=== PATIENT | female | born 1985 | race American Indian/Alaskan Native ===

== ENCOUNTER 2017-06-29 12:56 | Emergency (ER) | payer OTHER ==
[2017-06-29 14:28] VITALS: BP 110/74
--- NOTE | 2017-06-29 14:43 | Emergency Department Report ---
HPI - General Chief Complaint: Allergic Reaction Time Seen by Provider: 06/29/17 14:41 ED Past Medical Hx - Past Medical History Previous Medical History?: Yes Hx CVA: Yes - Surgical History Past Surgical History?: No - Social History Smoking Status: Current Every Day Smoker Substance Use Type: None ED Review of Systems ROS: Stated complaint: ALLERGIC REACTION Other details as noted in HPI Physical Exam - Physical Exam Vital Signs: Vital Signs 06/29/17 14:23 Temperature 98.7 F Pulse Rate 79 Respiratory 16 Rate Blood Pressure 110/74 O2 Sat by Pulse 98 Oximetry ED Course Vital Signs 06/29/17 14:23 Temperature 98.7 F Pulse Rate 79 Respiratory 16 Rate Blood Pressure 110/74 O2 Sat by Pulse 98 Oximetry Critical care attestation.: If time is entered above; I have spent that time in minutes in the direct care of this critically ill patient, excluding procedure time. ED Disposition Condition: Stable
[2017-06-29] MEDS ORDERED: PEPCID PO ONE (14:46)
--- NOTE | 2017-06-29 14:50 | Emergency Department Report ---
ED Rash HPI - HPI Chief Complaint: Allergic Reaction Stated Complaint: ALLERGIC REACTION Time Seen by Provider: 06/29/17 14:41 Duration: Today Location: Head, Neck, Chest, Back, Abdomen, Upper Extremities, Lower Extremities Suspected Cause: Food Rash Symptoms: Yes Itching, No Facial Swelling, No Tongue/Oral Swelling, No Breathing Difficulties, No Choking Sensation, No Wheezing/Dyspnea, No Peeling, No Blistering, No Fever, No Lightheaded, No Malaise, No Myalgias Severity: mild Other History: ate out last night allergic to fish; she thinks her food may have been cooked w seafood. abc intact ED Review of Systems ROS: Stated complaint: ALLERGIC REACTION Other details as noted in HPI Comment: All other systems reviewed and negative Skin: other ED Past Medical Hx - Past Medical History Previous Medical History?: Yes Hx CVA: Yes - Surgical History Past Surgical History?: No - Social History Smoking Status: Current Every Day Smoker Substance Use Type: None - Medications Home Medications: Home Medications Medication Instructions Recorded Confirmed Last Taken Type methylPREDNISolone [Medrol] 4 mg PO DAILY #1 tab.ds.pk 06/29/17 Unknown Rx Rash Exam - Exam General: Vital signs noted. No distress. Alert and acting appropriately. HEENT: No Periorbital Edema, No Conjuctival Injection, No Chemosis, No Perioral Edema, No Tongue Edema, No Uvular Edema, No Compromised Airway, No Drooling Lungs: Yes Good Air Exchange, No Wheezes, No Ronchi, No Stridor, No Cough, No Labored Respirations, No Retractions, No Use of Accessory Muscles, No Other Abnormal Lung Sounds Heart: Yes Regular, No Murmur Skin: Yes Urticarial Rash, No Maculopapular Rash, No Morbilliform rash, No Bulla (e), No Excoriations, No Weeping, No Tenderness, No Erythema, No Edema, No Encrustations Other: Positive: Abdomen Normal, Neurologic Normal, Musculoskeletal Normal ED Course Vital Signs 06/29/17 14:23 Temperature 98.7 F Pulse Rate 79 Respiratory 16 Rate Blood Pressure 110/74 O2 Sat by Pulse 98 Oximetry - Reevaluation(s) Reevaluation #1: 06/29/17 14:53 to er w rash she went out to eat last night allergic to seafood thinks her food came into contact w seafood gen urticaria of allergic rash itching wo relief from benadryl abc intact medicated dc home w dc poc ED Medical Decision Making - Medical Decision Making see note - Differential Diagnosis rash Critical care attestation.: If time is entered above; I have spent that time in minutes in the direct care of this critically ill patient, excluding procedure time. ED Disposition Clinical Impression: Allergic response, Rash Disposition: DC-01 TO HOME OR SELFCARE Is pt being admited?: No Does the pt Need Aspirin: No Condition: Stable Instructions: Urticaria (ED), Acute Rash (ED) Additional Instructions: over the counter benadryl and pepcid daily for itching; per package box follow up pcp Prescriptions: methylPREDNISolone [Medrol] 4 mg PO DAILY #1 tab.ds.pk Referrals: HU ROCKWELL JR, MD [Staff Physician] - 3-5 Days Time of Disposition: 14:48
== END 2017-06-29 15:09 | disposition home or self-care (01) ==
LOC: ED 12:56
DX: T78.40XA Allergy, unspecified, initial encounter (principal); R21 Rash and other nonspecific skin eruption; F17.200 Nicotine dependence, unspecified, uncomplicated; Z86.73 Personal history of transient ischemic attack (TIA), and cerebral infarction without residual deficits
CPT/HCPCS: 96372; 99282; J2930

== ENCOUNTER 2017-11-10 13:15 | Emergency (ER) | payer OTHER ==
[2017-11-10] MEDS ORDERED: TORADOL IM ONE (16:56)
[2017-11-10] MEDS ORDERED: NORCO 10/325 PO ONE (16:56)
--- NOTE | 2017-11-10 16:59 | Emergency Department Report ---
Blank Doc - Documentation Documentation: 32-year-old female with a history of previous DVT/PE presents to the hospital for right hip pain radiating down her leg that started at 3 AM. Patient was doing housework throughout the day yesterday but states this is her normal level of activity. Denies recent travel. History of previous DVT associated with with control in the past not currently on anticoagulation or control pills. Medication orders: [place] [facility] Torad[facility] Imaging orders Right hip x-ray Right leg Doppler
--- NOTE | 2017-11-10 18:02 | XRay Report ---
FINAL REPORT EXAM: XR HIP 2-3V RT HISTORY: hip pain vas lab will bring TECHNIQUE: Right hip and AP pelvis PRIORS: None. FINDINGS: No fracture identified. No dislocation seen. Femoral head maintains a normal contour. Joint spaces within normal limits. Adjacent bony pelvis is unremarkable IMPRESSION: Negative hip series
--- NOTE | 2017-11-10 20:16 | Emergency Department Report ---
ED Back Pain/Injury HPI - General Chief Complaint: Extremity Injury, Lower Stated Complaint: RIGHT LEG PAIN Time Seen by Provider: 11/10/17 16:50 Source: patient Limitations: Physical Limitation - History of Present Illness Initial Comments: This is a 32-year-old female nontoxic, well nourished in appearance, no acute signs of distress presents to the ED with c/o of right side lower back pain that radiates to right lower extremity. Patient denies any trauma. Patient stated symptoms occurred suddenly around 3 AM during walking and twisting. Patient describes pain as aching with level of 8/10. Patient denies any numbness , tingling, fever, chill, headache, nausea, vomiting, chest pain, shortness of breathe, stiff neck. Patient denies any bladder or bowel instability. Patient denies any calf pain or tenderness. Patient stated past medical history includes CVA. MD Complaint: back pain -: days(s) (1) Similar Symptoms Previously: No Place: home Radiation: right leg Severity: mild Severity scale (0 -10): 8 Quality: aching Consistency: now resolved Improves With: immobilization, supine, sitting upright Worsens With: movement, walking Context: turning/twisting Associated Symptoms: denies other symptoms. denies: confusion, weakness, chest pain, numbness, difficulty walking, cough, difficulty urinating, diaphoresis, incontinence, fever/chills, constipation, headaches, abdominal pain, loss of appetite, malaise, nausea/vomiting, rash, seizure, shortness of breath, syncope - Related Data Previous Rx's Medication Instructions Recorded Last Taken Type methylPREDNISolone [Medrol] 4 mg PO DAILY #1 tab.ds.pk 06/29/17 Unknown Rx Cyclobenzaprine [Flexeril] 10 mg PO QHS PRN #7 tablet 11/10/17 Unknown Rx Ibuprofen [Motrin] 600 mg PO Q8H PRN #30 tablet 11/10/17 Unknown Rx Allergies Allergy/AdvReac Type Severity Reaction Status Date / Time acetaminophen Allergy Hives Verified 06/29/17 14:23 [From Darvocet-N] lorazepam [From Ativan] Allergy Dizziness Verified 06/29/17 14:23 Penicillins Allergy Hives Verified 06/29/17 14:23 propoxyphene Allergy Hives Verified 06/29/17 14:23 [From Darvocet-N] topiramate [From Topamax] Allergy Hives Verified 06/29/17 14:23 ED Review of Systems ROS: Stated complaint: RIGHT LEG PAIN Other details as noted in HPI Constitutional: denies: chills, fever Eyes: denies: eye pain, eye discharge, vision change ENT: denies: ear pain, throat pain Respiratory: denies: cough, shortness of breath, wheezing Cardiovascular: denies: chest pain, palpitations Endocrine: no symptoms reported Gastrointestinal: denies: abdominal pain, nausea, diarrhea Genitourinary: denies: urgency, dysuria, discharge Musculoskeletal: back pain. denies: joint swelling, arthralgia Skin: denies: rash, lesions Neurological: denies: headache, weakness, paresthesias Psychiatric: denies: anxiety, depression Hematological/Lymphatic: denies: easy bleeding, easy bruising ED Past Medical Hx - Past Medical History Hx CVA: Yes - Social History Smoking Status: Current Every Day Smoker Substance Use Type: None - Medications Home Medications: Home Medications Medication Instructions Recorded Confirmed Last Taken Type methylPREDNISolone [Medrol] 4 mg PO DAILY #1 tab.ds.pk 06/29/17 Unknown Rx Cyclobenzaprine [Flexeril] 10 mg PO QHS PRN #7 tablet 11/10/17 Unknown Rx Ibuprofen [Motrin] 600 mg PO Q8H PRN #30 tablet 11/10/17 Unknown Rx ED Physical Exam - General Limitations: Physical Limitation General appearance: alert, in no apparent distress - Head Head exam: Present: atraumatic, normocephalic - Eye Eye exam: Present: normal appearance Pupils: Present: normal accommodation - ENT ENT exam: Present: normal exam, mucous membranes moist - Neck Neck exam: Present: normal inspection, full ROM. Absent: tenderness, meningismus - Respiratory Respiratory exam: Present: normal lung sounds bilaterally. Absent: respiratory distress, wheezes, rales, rhonchi, stridor - Cardiovascular Cardiovascular Exam: Present: regular rate, normal rhythm, normal heart sounds. Absent: bradycardia, tachycardia, irregular rhythm, systolic murmur, diastolic murmur, rubs, gallop - GI/Abdominal GI/Abdominal exam: Present: soft, normal bowel sounds. Absent: distended, tenderness, guarding, rebound, rigid, diminished bowel sounds - Rectal Rectal exam: Present: deferred - Extremities Exam Extremities exam: Present: normal inspection, full ROM, normal capillary refill. Absent: tenderness, calf tenderness - Back Exam Back exam: Present: normal inspection, full ROM, paraspinal tenderness (right lumbar region). Absent: tenderness, CVA tenderness (R), CVA tenderness (L), muscle spasm, vertebral tenderness, rash noted - Expanded Back Exam Expanded Back exam: Absent: saddle anesthesia Back exam: Negative Straight Leg Raising: Left, Right - Neurological Exam Neurological exam: Present: alert, oriented X3, normal gait - Psychiatric Psychiatric exam: Present: normal affect, normal mood - Skin Skin exam: Present: warm, dry, intact, normal color. Absent: rash ED Course Vital Signs 11/10/17 13:24 Temperature 97.4 F L Pulse Rate 88 Respiratory 20 Rate Blood Pressure 114/64 O2 Sat by Pulse 100 Oximetry - Reevaluation(s) Reevaluation #1: 11/10/17 20:19 Patient is speaking in full sentences with no signs of distress noted. - Consultations Consultation #1: 11/10/17 20:19 Patient has been consulted with Dr. Vigil about patient history, physical exam, and labs/US report and examined and screened patient and agrees to ED plan of care and discharge plan of care. ED Medical Decision Making - Medical Decision Making this is a 32-year-old female that presents with low back strain versus sciatica. Patient stable was examined by me and Dr. Elizabeth. Ultrasound obtained with no SVT/DVT. X-ray of hip obtained within normal limits and dictated by the radiologist. Patient is notified of the x-ray report with no questions noted by the patient. Patient received treatment in the ED which consisted symptoms have resolved and subsided. There is no symptoms or signs of cauda equina syndrome. Patient is discharged with Flexeril and Motrin. Patient's is currently in the ED and stated she would drive the patient home at discharge. Patient was referred to Follow-up with a primary care doctor in 3-5 days or if symptoms worsen and continue return to emergency room as soon as possible. At time of discharge, the patient does not seem toxic or ill in appearance. No acute signs of distress noted. Patient agrees to discharge treatment plan of care. No further questions noted by the patient. Critical care attestation.: If time is entered above; I have spent that time in minutes in the direct care of this critically ill patient, excluding procedure time. ED Disposition Clinical Impression: Low back strain Qualifiers: Encounter type: initial encounter Qualified Code(s): S39.012A - Strain of muscle, fascia and tendon of lower back, initial encounter Sciatica Qualifiers: Laterality: right Qualified Code(s): M54.31 - Sciatica, right side Disposition: TO HOME OR SELFCARE Is pt being admited?: No Does the pt Need Aspirin: No Condition: Stable Instructions: Low Back Strain (ED), Sciatica (ED), Cyclobenzaprine (By mouth), Ibuprofen (By mouth) Additional Instructions: Follow-up with your primary care doctor in 3-5 days or if symptoms worsen such as bladder or bowel stability, chest pain, short of breath, numbness or tingling sensation in extremities, headache, dizziness, visual changes, nausea vomiting, or abdominal pain, return back to emergency room as was possible. Take ibuprofen and Flexeril as prescribed. Do not operate heavy machinery while taking Flexeril due to sedation Prescriptions: Cyclobenzaprine [Flexeril] 10 mg PO QHS PRN #7 tablet PRN Reason: Muscle Spasm Ibuprofen [Motrin] 600 mg PO Q8H PRN #30 tablet PRN Reason: Pain Referrals: NIMCO PAYAN MD [Primary Care Provider] - 3-5 Days PRIMARY CARE, [Referring] - 3-5 Days [facility] [place]] - 3-5 Days [facility] [Outside] - 3-5 Days Forms: Work/School Release Form(ED)
[2017-11-10 20:36] VITALS: BP 130/82
== END 2017-11-10 20:36 | disposition home or self-care (01) ==
LOC: ED 13:15
DX: S39.012A Strain of muscle, fascia and tendon of lower back, initial encounter (principal); M54.31 Sciatica, right side; X58.XXXA Exposure to other specified factors, initial encounter; Y93.89 Activity, other specified; Y92.89 Other specified places as the place of occurrence of the external cause; Y99.8 Other external cause status
CPT/HCPCS: 73502; 93971; 96372; 99284; J1885

== ENCOUNTER 2018-02-15 17:18 | Emergency (ER) | payer OTHER ==
[2018-02-15 17:29] VITALS: BP 114/78
[2018-02-15] MEDS ORDERED: NORCO 5/325 PO ONE (19:37)
[2018-02-15] MEDS ORDERED: MOTRIN PO ONE (19:37)
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
--- NOTE | 2018-02-15 20:41 | XRay Report ---
FINAL REPORT PROCEDURE: XR KNEE BILAT 1-2V TECHNIQUE: Bilateral knee radiographs, AP and lateral views HISTORY: knee pain b/l COMPARISON: No prior studies are available for comparison. FINDINGS: Fracture (s) and/or Dislocation(s): None . Joint space(s): Normal. Soft tissues: Normal. Bone mineralization: Right proximal tibial diaphysis demonstrates irregular intramedullary calcification. Foreign bodies: None. IMPRESSION: No acute fracture Irregular intramedullary calcification of right proximal fibular diaphysis most likely represents a benign lesion such as ossifying fibroma or enchondroma. Clinical correlation is recommended. Otherwise negative study.
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
--- NOTE | 2018-02-15 20:44 | XRay Report ---
FINAL REPORT PROCEDURE: XR HAND 3+V LT TECHNIQUE: LEFT hand radiographs, AP, lateral, and oblique views. CPT 36609-JN HISTORY: left hand pain COMPARISON: No prior studies are available for comparison. FINDINGS: Fracture (s) and/or Dislocation(s): None . Alignment: Normal . Joint space(s): Normal . Soft tissues: Normal . Bone mineralization: Normal . Foreign bodies: None . IMPRESSION: Normal Examination .
== END 2018-02-15 21:05 | disposition home or self-care (01) ==
LOC: ED 17:18
DX: S63.92XA Sprain of unspecified part of left wrist and hand, initial encounter (principal); M79.1 Myalgia; F17.200 Nicotine dependence, unspecified, uncomplicated; Z86.73 Personal history of transient ischemic attack (TIA), and cerebral infarction without residual deficits; Z88.0 Allergy status to penicillin; Z88.8 Allergy status to other drugs, medicaments and biological substances; Z88.6 Allergy status to analgesic agent; V49.49XA Driver injured in collision with other motor vehicles in traffic accident, initial encounter; Y93.89 Activity, other specified; Y92.89 Other specified places as the place of occurrence of the external cause; Y99.8 Other external cause status
CPT/HCPCS: 72040

== ENCOUNTER 2018-12-08 12:31 | Emergency (ER) | payer OTHER ==
--- NOTE | 2018-12-08 13:10 | Emergency Department Report ---
Chief Complaint: Headache Stated Complaint: HEADACHE/LFT SIDE PAIN Time Seen by Provider: 12/08/18 13:04 - HPI History of Present Illness: This is a 33 y.o. female that presents to the ER with a headache and left sided neck pain x 3 days. Taking Excedrin migraine with no improvement of symptoms. Admits photophobia, nausea, headache, and left sided neck pain. History of migraines and seizures. - Exam Vital Signs: Vital Signs 12/08/18 13:04 Temperature 98.1 F Pulse Rate 76 Respiratory 20 Rate Blood Pressure 134/85 O2 Sat by Pulse 100 Oximetry MSE screening note: Focused history and physical exam performed. Due to findings the following was ordered: ACC for further evaluation. ED Disposition for MSE Condition: Stable
[2018-12-08] MEDS ORDERED: MORPHINE IM ONE (14:34)
[2018-12-08] MEDS ORDERED: REGLAN IM ONE (14:34)
--- NOTE | 2018-12-08 14:39 | Emergency Department Report ---
ED Headache HPI - General Chief Complaint: Headache Stated Complaint: HEADACHE/LFT SIDE PAIN Time Seen by Provider: 12/08/18 13:04 - History of Present Illness Initial Comments: Patient is 33 years old female with history of headache migraine. Patient presented to the ER complaining of 1 week history of headache associated with nausea but no vomiting. Patient stated that she has been taking Excedrin Migraine but no improvement. Patient stated that it has been a while since he has a headache like this. Patient denied any neck pain, weakness, numbness or tingling sensation. No bowel or bladder incontinence. Timing/Duration: 1 week Quality: moderate Head Injury Location: temporal Recent Head Trauma: no recent headache/trauma, frequent headaches Associated Symptoms: denies symptoms Allergies/Adverse Reactions: Allergies acetaminophen [From Darvocet-N] Allergy (Verified 02/15/18 17:26) Hives lorazepam [From Ativan] Allergy (Verified 02/15/18 17:26) Dizziness Penicillins Allergy (Verified 02/15/18 17:26) Hives propoxyphene [From Darvocet-N] Allergy (Verified 02/15/18 17:26) Hives topiramate [From Topamax] Allergy (Verified 02/15/18 17:26) Hives Home Medications: Ambulatory Orders methylPREDNISolone [Medrol] 4 mg PO DAILY #1 tab.ds.pk 06/29/17 Cyclobenzaprine [Flexeril] 10 mg PO QHS PRN #7 tablet 11/10/17 Ibuprofen [Motrin] 600 mg PO Q8H PRN #30 tablet 11/10/17 Cyclobenzaprine [Flexeril] 10 mg PO TID PRN #12 tablet 02/15/18 Ibuprofen [Motrin] 800 mg PO Q8HR PRN #25 tablet 02/15/18 Omeprazole 20 mg PO DAILY #30 tab. 07/20/18 Ondansetron [Zofran Odt] 4 mg PO Q8HR PRN #9 tab.alex 07/20/18 ED Review of Systems ROS: Stated complaint: HEADACHE/LFT SIDE PAIN Other details as noted in HPI Comment: All other systems reviewed and negative Constitutional: denies: chills, fever ENT: denies: throat pain Cardiovascular: denies: chest pain, palpitations Gastrointestinal: denies: abdominal pain, nausea, vomiting, diarrhea, constipation, hematemesis, hematochezia Musculoskeletal: denies: back pain Neurological: headache. denies: weakness, numbness, paresthesias, confusion, abnormal gait ED Past Medical Hx - Past Medical History Hx CVA: Yes Hx Seizures: Yes - Surgical History Additional Surgical History: T&A - Social History Smoking Status: Current Every Day Smoker Substance Use Type: None - Medications Home Medications: Home Medications Medication Instructions Recorded Confirmed Last Taken Type methylPREDNISolone [Medrol] 4 mg PO DAILY #1 tab.ds.pk 06/29/17 Unknown Rx Cyclobenzaprine [Flexeril] 10 mg PO QHS PRN #7 tablet 11/10/17 Unknown Rx Ibuprofen [Motrin] 600 mg PO Q8H PRN #30 tablet 11/10/17 Unknown Rx Cyclobenzaprine [Flexeril] 10 mg PO TID PRN #12 tablet 02/15/18 Unknown Rx Ibuprofen [Motrin] 800 mg PO Q8HR PRN #25 tablet 02/15/18 Unknown Rx Omeprazole 20 mg PO DAILY #30 tab.rap.dr 07/20/18 Unknown Rx Ondansetron [Zofran Odt] 4 mg PO Q8HR PRN #9 tab.rapdis 07/20/18 Unknown Rx ED Physical Exam - General Limitations: No Limitations General appearance: alert, in no apparent distress - Head Head exam: Present: atraumatic, normocephalic, normal inspection - Eye Eye exam: Present: normal appearance, PERRL - ENT ENT exam: Present: normal exam, normal orophraynx, mucous membranes moist - Neck Neck exam: Present: normal inspection, full ROM. Absent: tenderness, meningismus, lymphadenopathy, thyromegaly - Respiratory Respiratory exam: Present: normal lung sounds bilaterally - Cardiovascular Cardiovascular Exam: Present: regular rate, normal rhythm, normal heart sounds - GI/Abdominal GI/Abdominal exam: Present: soft, normal bowel sounds. Absent: distended, tenderness, guarding, rebound, rigid, organomegaly, mass, bruit, pulsatile mass, hernia - Extremities Exam Extremities exam: Present: normal inspection, full ROM, normal capillary refill. Absent: tenderness, pedal edema, joint swelling, calf tenderness - Back Exam Back exam: Present: normal inspection, full ROM. Absent: CVA tenderness (R), CVA tenderness (L) - Neurological Exam Neurological exam: Present: alert, oriented X3, CN II-XII intact, normal gait, reflexes normal - Skin Skin exam: Present: warm, intact, normal color ED Course Vital Signs 12/08/18 12/08/18 13:04 15:11 Temperature 98.1 F Pulse Rate 76 Respiratory 20 16 Rate Blood Pressure 134/85 O2 Sat by Pulse 100 Oximetry ED Medical Decision Making - Radiology Data Radiology results: report reviewed CT brain is negative for acute finding. - Medical Decision Making Patient stated that she is feeling much better after morphine and Reglan. CT brain is negative for acute finding. Advised patient to follow up with her primary care physician for further management for her migraine headache. Critical care attestation.: If time is entered above; I have spent that time in minutes in the direct care of this critically ill patient, excluding procedure time. ED Disposition Clinical Impression: Headache Disposition: DC-01 TO HOME OR SELFCARE Is pt being admited?: No Condition: Stable Instructions: Acute Headache (ED) Referrals: JOSE ALFREDO DORSEY MD [Primary Care Provider] - 3-5 Days
--- NOTE | 2018-12-08 15:02 | Cat Scan Report ---
CT HEAD WITHOUT CONTRAST: HISTORY: Headache. TECHNIQUE: Sequential 2.5mm CT images. COMPARISON: none. FINDINGS: Cerebral Parenchyma: Within normal limits. Cerebellum: Within normal limits. Brainstem: Within normal limits. Ventricles: Normal. Sella: Normal. Extra-axial spaces: Normal. Basal Cisterns: Normal. Intracranial Hemorrhage: None. Midline Shift: None. Calvarium: Normal. Sinuses: Normal. Mastoid Air Cells: Normal. Visualized Orbits: Normal. IMPRESSION: Cranial CT scan within normal limits.
[2018-12-08 17:22] VITALS: BP 140/74
== END 2018-12-08 17:25 | disposition home or self-care (01) ==
LOC: ED 12:31
DX: R51 Headache (principal); R11.0 Nausea; F17.200 Nicotine dependence, unspecified, uncomplicated; Z79.899 Other long term (current) drug therapy
CPT/HCPCS: 70450; 96372; 99283; J2270; J2765

== ENCOUNTER 2019-02-18 06:53 | Emergency (ER) | payer SELFPAY ==
[2019-02-18] MEDS ORDERED: PEPCID IV ONE ×2 (07:03→07:06)
[2019-02-18] MEDS ORDERED: BENADRYL IV ONE (07:03)
[2019-02-18] MEDS ORDERED: SOLU-Medrol IV ONE (07:03)
[2019-02-18] MEDS ORDERED: SOLU-Medrol ONE (07:06)
[2019-02-18] MEDS ORDERED: NACL 0.9% 1000 ML 1,000 ML ONE (07:06)
[2019-02-18] MEDS ORDERED: BENADRYL ONE (07:07)
[2019-02-18] MEDS ORDERED: ADRENALINE P/F SUB-Q ONE (07:07)
--- NOTE | 2019-02-18 07:08 | Emergency Department Report ---
HPI - General Chief Complaint: Allergic Reaction Time Seen by Provider: 02/18/19 07:03 - HPI HPI: 33-year-old female that has seizures CVA presents to the Hospital of reaction after eating at [employer]. Patient states she had slovak fries and a big Mac. She is allergic to multiple substances. Denies any known exposure to allergen. She took 2 Benadryl prior to arrival. She complained of generalized pruritus and hoarseness. She denies shortness of breath. ED Past Medical Hx - Past Medical History Hx CVA: Yes Hx Seizures: Yes - Surgical History Additional Surgical History: T&A - Social History Smoking Status: Current Every Day Smoker Substance Use Type: None - Medications Home Medications: Home Medications Medication Instructions Recorded Confirmed Last Taken Type Ibuprofen [Motrin] 800 mg PO Q8HR PRN #25 tablet 02/15/18 02/18/19 02/15/19 Rx EPINEPHrine [Epipen 2-Wali] 0.3 mg IJ ONCE PRN #2 auto.injct 02/18/19 Unknown Rx Prednisone [predniSONE 10 mg 10 mg PO .TAPER #1 tab.ds.pk 02/18/19 Unknown Rx (6-Day Pack, 21 Tabs)] ED Review of Systems ROS: Stated complaint: ALLERGIC REACTION Other details as noted in HPI Comment: All other systems reviewed and negative Physical Exam - Physical Exam Vital Signs: Vital Signs 02/18/19 06:54 Temperature 98.0 F Pulse Rate 83 Respiratory 22 Rate Blood Pressure 152/66 O2 Sat by Pulse 99 Oximetry Physical Exam: General: No limitations, patient is alert in no acute distress Head exam: Atraumatic, normocephalic Eyes exam: Normal appearance ENT: Moist mucous membrane, normal oropharynx. No posterior pharyngeal swelling, hoarseness without stridor Neck exam: Normal inspection, full range of motion, no meningismus nontender Respiratory exam: Clear to auscultation bilateral, no wheezes, rales, crackles Cardiovascular: Normal rate and rhythm, normal heart sounds Abdomen: Soft, nondistended, and nontender, with normal bowel sounds, no rebo und, or guarding Extremity: Full range of motion normal inspection no deformity Back: Normal Inspection, full range of motion, no tenderness Neurologic: Alert, oriented x3, cranial nerves intact, no motor or sensory deficit Psychiatric: normal affect, normal mood Skin: No rash noted ED Course Vital Signs 02/18/19 06:54 Temperature 98.0 F Pulse Rate 83 Respiratory 22 Rate Blood Pressure 152/66 O2 Sat by Pulse 99 Oximetry - Reevaluation(s) Reevaluation #1: 02/18/19 13:13 Patient observed in a hospital for many hours after receiving site measure, Pepcid, and epinephrine. She took Benadryl 50 prior to arrival. Pt continues to have hoarseness without improvement. This case discussed with hospitalist for admission. He plans to obtain CT neck and evaluate for possible admission. 02/18/19 14:34 ct neck with iv contrast pending. Pt has states she has received IV contrast in past without allergy. She states IV contrast typically makes he vomit. zofran ordered to be given prior to ct scan. ED Medical Decision Making - Lab Data Result diagrams: 02/18/19 12:16 02/18/19 12:16 Lab Results 02/18/19 02/18/19 02/18/19 Range/Units 12:16 12:16 12:16 WBC 7.1 (4.5-11.0) K/mm3 RBC 4.98 (3.65-5.03) M/mm3 Hgb 13.3 (10.1-14.3) gm/dl Hct 40.8 (30.3-42.9) % MCV 82 (79-97) fl MCH 27 L (28-32) pg MCHC 33 (30-34) % RDW 15.1 (13.2-15.2) % Plt Count 186 (140-440) K/mm3 Lymph % (Auto) 9.9 L (13.4-35.0) % [place] % (Auto) 0.8 (0.0-7.3) % Eos % (Auto) 0.0 (0.0-4.3) % Baso % (Auto) 0.2 (0.0-1.8) % Lymph # 0.7 L (1.2-5.4) K/mm3 [place] # 0.1 (0.0-0.8) K/mm3 Eos # 0.0 (0.0-0.4) K/mm3 Baso # 0.0 (0.0-0.1) K/mm3 Seg Neutrophils % 89.1 H (40.0-70.0) % Seg Neutrophils # 6.4 (1.8-7.7) K/mm3 Sodium 141 (137-145) mmol/L Potassium 3.9 (3.6-5.0) mmol/L Chloride 105.2 (98-107) mmol/L Carbon Dioxide 22 (22-30) mmol/L Anion Gap 18 mmol/L BUN 6 L (7-17) mg/dL Creatinine 0.5 L (0.7-1.2) mg/dL Estimated GFR > 60 ml/min BUN/Creatinine Ratio 12 % Glucose 158 H (65-100) mg/dL Calcium 9.6 (8.4-10.2) mg/dL HCG, Qual Negative (Negative) - Medical Decision Making case d/w Dr Chaves for persistant hoarness due to allergic reaction despite ed tx to consider admission Dr Chaves ordered ct neck pending at dispo dr Chaves to dispo - Differential Diagnosis allergic reaction, angioedema Critical Care Time: No Critical care attestation.: If time is entered above; I have spent that time in minutes in the direct care of this critically ill patient, excluding procedure time. ED Disposition Clinical Impression: Allergic reaction, Hoarseness Disposition: OP ADMIT IP TO THIS HOSP Is pt being admited?: Yes Condition: Stable Prescriptions: EPINEPHrine [Epipen 2-Wlai] 0.3 mg IJ ONCE PRN #2 auto.injct PRN Reason: Allergic Reaction Prednisone [predniSONE 10 mg (6-Day Pack, 21 Tabs)] 10 mg PO .TAPER #1 tab.ds.pk Referrals: [facility] MD SAMANTHA [Primary Care Provider] - 3-5 Days Forms: Work/School Release Form(ED) Time of Disposition: 15:17 (Dr chaves/hosp)
[2019-02-18 12:31] LABS: Basophils % (Auto) 0.2 % (0.0-1.8); Hematocrit 40.8 % (30.3-42.9); Hemoglobin 13.3 gm/dl (10.1-14.3); Lymphocytes # (Auto) 0.7 K/mm3 (1.2-5.4); Lymphocytes % (Auto) 9.9 % (13.4-35.0); Mean Corpuscular HGB Conc 33 % (30-34); Mean Corpuscular Volume 82 fl (79-97); Monocytes # (Auto) 0.1 K/mm3 (0.0-0.8); Monocytes % (Auto) 0.8 % (0.0-7.3); Platelet Count 186 K/mm3 (140-440); Red Blood Count 4.98 M/mm3 (3.65-5.03); Red Cell Distribution Width 15.1 % (13.2-15.2)
[2019-02-18 12:48] LABS: BUN/Creatinine Ratio 12; Blood Urea Nitrogen 6 mg/dL (7-17); Calcium 9.6 mg/dL (8.4-10.2); Hemolysis Index 17
[2019-02-18] MEDS ORDERED: ZOFRAN IV ONE (14:33)
--- NOTE | 2019-02-18 16:17 | Cat Scan Report ---
NECK CT 02/18/2019 HISTORY: "Allergic reaction" FINDINGS: Contrast enhanced CT images of the soft tissues of the neck were obtained. Images are evalu ated in the axial, coronal, and sagittal planes. There is no evidence of abnormal neck mass, fluid collection, or inflammation. There is no evidence o f compromise of the airway. There is no evidence of acute extrinsic compression along the course of t he trachea or esophagus. A few scattered normal-sized lymph nodes are present bilaterally, most prominently in the jugulodigas tric region. There is no evidence of abnormal cervical adenopathy. Vascular structures are unremarkable. IMPRESSION: No significant abnormality. All CT scans at this location are performed using dose reduction to ALARA by means of automated expos ure control. Signer Name: Christiano Briceño MD Signed: 02/18/2019 4:13 PM Workstation Name: [id number]
[2019-02-18 17:21] VITALS: BP 122/71
--- NOTE | 2019-02-18 18:31 | Event Note ---
Date: 02/18/19 33 YO Female presents to ED for evaluation of allergic reaction after eating fast food. Pt seen and evaluated in ED and treated with eipnepherine, and IV solumedrol with relief of symptoms. Pt underwent CT neck which was unremarkable for acute findings or any evidence of airway edema or pending compromise. PT discharged home and instructed to f/u pcp 3-5 days, as well as Allergy Medicine 3-5 day for allergy testing. Pt counseled regarding smoking cessation(+15min). Physical Exam: General: No limitations, patient is alert in no acute distress Head exam: Atraumatic, normocephalic Eyes exam: Normal appearance ENT: Moist mucous membrane, normal oropharynx. No posterior pharyngeal swelling Neck exam: Normal inspection, full range of motion, no meningismus nontender Respiratory exam: Clear to auscultation bilateral, no wheezes, rales, crackles Cardiovascular: Normal rate and rhythm, normal heart sounds Abdomen: Soft, nondistended, and nontender, with normal bowel sounds, no rebound, or guarding Extremity: Full range of motion normal inspection no deformity Back: Normal Inspection, full range of motion, no tenderness Neurologic: Alert, oriented x3, cranial nerves intact, no motor or sensory deficit Psychiatric: normal affect, normal mood Skin: No rash noted
== END 2019-02-18 17:22 | disposition admitted as inpatient to this hospital (09) ==
LOC: ED 06:53
DX: T78.40XA Allergy, unspecified, initial encounter (principal); R49.0 Dysphonia; F17.200 Nicotine dependence, unspecified, uncomplicated
CPT/HCPCS: 36415; 70491; 80048; 84703; 85025; 96372; 96374; 96375; 99284; J0171; J2405; J2930; J7030; Q9966; J1200